=== PATIENT | female | born 1980 | race Caucasian/White ===

== ENCOUNTER 2019-09-26 03:11 | Emergency (ER) | payer MEDICAID ==
--- NOTE | 2019-09-26 03:29 | EDM.PDOC ---
ED HPI GENERAL MEDICAL PROBLEM - General Chief Complaint: Skin Complaint Stated Complaint: ABSCESS Time Seen by Provider: 09/26/19 03:15 Source of Information: Reports: Patient History Limitations: Reports: No Limitations - History of Present Illness INITIAL COMMENTS - FREE TEXT/NARRATIVE: History of present illness: [Patient is 39-year-old female who presents with a "boil" on her butt. States it is been there for a few days and getting worse in terms of pain and also size. States that she has had little bumps like this before in the past along the bikini line but most of them are resolved on their own, none of them is big. She denies any systemic symptoms. Denies tenesmus. Denies fever. Has not tried any medications to treat her symptoms. Reports that she is about 7 weeks , the last ultrasound they had they were not able to identify a heart beat yet and she is going back for another ultrasound next week. Denies any abdominal pain or cramping.] Review of systems: As per history of present illness and below otherwise all systems reviewed and negative. Past medical history: As per history of present illness and as reviewed below otherwise noncontributory. Surgical history: As per history of present illness and as reviewed below otherwise noncontributory. Social history: No reported history of drug or alcohol abuse. Family history: As per history of present illness and as reviewed below otherwise noncontributory. Physical exam: General: Awake, alert, no acute distress, A&O X3. HEENT: Atraumatic, normocephalic, pupils reactive, negative for conjunctival pallor or scleral icterus, mucous membranes moist, throat clear, neck supple, nontender, trachea midline. Lungs: Clear to auscultation, breath sounds equal bilaterally, chest nontender. Heart: RRR, normal S1S2, no JVD. Abdomen: Soft, nondistended, nontender. Negative for masses or hepatosplenomegaly. Negative for costovertebral tenderness. Pelvis: Stable nontender. Genitourinary: Deferred Rectal: 2 x 3 cm erythematous and indurated mass along the left medial buttock cheek. No purulent drainage. No lymphatic streaking. Extremities: Atraumatic, no edema, Neurovascular unremarkable. Neuro: Motor and sensory grossly intact throughout. Exam nonfocal. Diagnostics: [] Therapeutics: [] Impression: [] Plan: [] Definitive disposition and diagnosis as appropriate pending reevaluation and review of above. 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 ED EXAM, SKIN/RASH Exam: See Below (see h and p) ED SKIN PROCEDURES - I&D Skin Prep: Providone-Iodine (Betadine) Local Anesthesia: Lidocaine: 1% Plain Local Anesthetic Volume: 4cc Area Incised With: 11 Blade Drainage: Purulent, Bloody Probed to Break Up Loculations: Yes Packed With: 1/4 in. Iodoform Sterile Dressinx4(s) Complications: No Course - Vital Signs Text/Narrative:: Patient had incision and drainage performed, packing placed, tolerated the procedure well, given dose of Augmentin here and sent home with prescription for Augmentin given the location of the abscess. Encouraged her to have packing removed in about 48 hours and have wound check at that time as well. Abscess appears to be fairly superficial, very low concern for extension into deep space or perirectal region. She otherwise has stable vital signs, nontoxic in appearance, and agreeable with plan to be discharged home and follow -up in the outpatient setting. Return precautions provided. Last Recorded V/S: Last Vital Signs Temp 35.8 C L 09/26/19 03:16 Pulse 81 09/26/19 03:16 Resp 14 09/26/19 03:16 BP 107/65 09/26/19 03:16 Pulse Ox 98 09/26/19 03:16 - Orders/Labs/Meds Meds: Medications Discontinued Medications Generic Name Dose Route Start Last Admin Trade Name Freq PRN Reason Stop Dose Admin Amoxicillin/Clavulanate Potassium 1 tab 09/26/19 03:43 Augmentin 875 Mg/125 Mg PO 09/26/19 03:44 ONETIME ONE Lidocaine HCl 5 ml 09/26/19 03:22 Xylocaine-Mpf 1% INJECT 09/26/19 03:23 ONETIME ONE Departure - Departure Time of Disposition: 03:47 Disposition: Home, Self-Care 01 Condition: Good Clinical Impression: Abscess - Discharge Information Prescriptions: Amoxicillin/Potassium Clav [Augmentin 875-125 Tablet] 1 each PO BID #14 tablet Instructions: Skin Abscess, [id number] Referrals: PCP,None [Primary Care Provider] - Forms: ED Department Discharge Additional Instructions: Follow-up with primary care doctor. Take all medications as prescribed. Return to the ER with any new or worsening symptoms. Have packing removed in 48 hours. The following information is given to patients seen in the emergency department who are being discharged to home. This information is to outline your options for follow-up care. We provide all patients seen in our emergency department with a follow-up referral. The need for follow-up, as well as the timing and circumstances, are variable depending upon the specifics of your emergency department visit. If you don't have a primary care physician on staff, we will provide you with a referral. We always advise you to contact your personal physician following an emergency department visit to inform them of the circumstance of the visit and for follow-up with them and/or the need for any referrals to a consulting specialist. The emergency department will also refer you to a specialist when appropriate. This referral assures that you have the opportunity for follow-up care with a specialist. All of these measure are taken in an effort to provide you with optimal care, which includes your follow-up. Under all circumstances we always encourage you to contact your private physician who remains a resource for coordinating your care. When calling for follow-up care, please make the office aware that this follow-up is from your recent emergency room visit. If for any reason you are refused follow-up, please contact the [facility] Emergency Department at and asked to speak to the emergency department charge nurse. Sepsis Event Note - Evaluation Sepsis Screening Result: No Definite Risk - Focused Exam Vital Signs: Vital Signs Temp Pulse Resp BP Pulse Ox 09/26/19 03:16 35.8 C L 81 14 107/65 98 Date Exam was Performed: 09/26/19 Time Exam was Performed: 03:48
[2019-09-26] MEDS ORDERED: Amoxicillin/Clavulanate K 875-125 MG Tab PO ONE (03:43)
== END 2019-09-26 03:57 | disposition home or self-care (01) ==
LOC: MW.ED 03:11
DX: L02.31 Cutaneous abscess of buttock (principal); Z88.1 Allergy status to other antibiotic agents
CPT/HCPCS: 10061; 99282; A9270; J2001; 10060